=== PATIENT | female | born 1955 | race Caucasian/White ===

== ENCOUNTER 2020-11-10 23:19 | Emergency (ER) | payer BC ==
[~2020-11-10] VITALS: Ht 170.2 cm; Wt 93.0 kg
[2020-11-10] MEDS ORDERED: ULTRAM 50MG TAB50 MG PO (23:29)
[2020-11-11 00:11] LABS: ABSOLUTE NEUTROPHILS 4.7 thou/uL (1.4-8.2); EOSINOPHILS 2.2 % (0.0-3.0); HEMATOCRIT 39.7 % (37.0-47.0); HEMOGLOBIN 12.4 gm/dL (12.0-15.0); LYMPHOCYTES 26.6 % (24.0-44.0); MCH 20.5 pg (26.0-34.0); MCHC 31.1 g/dL (28.0-37.0); MCV 65.8 fL (80.0-100.0); MONOCYTES 7.4 % (1.0-8.0); PLATELET COUNT 265 thou/uL (150-400); POLYS 62.8 % (36.0-66.0); RBC 6.04 mil/uL (4.20-5.00); RDW 15.4 % (10.5-14.5); WBC 7.4 thou/uL (4.0-11.0)
[2020-11-11 00:27] LABS: CALCIUM 9.6 mg/dL (8.5-10.1); CREATININE 0.7 mg/dL (0.6-1.0)
[2020-11-11 00:28] LABS: POTASSIUM 4.9 mmol/L (3.5-5.1)
[2020-11-11 00:34] LABS: ALBUMIN 3.9 g/dL (3.4-5.0); TOTAL BILIRUBIN 0.5 mg/dL (0.2-1.0); TOTAL PROTEIN 7.4 g/dL (6.4-8.2)
[2020-11-11 00:37] LABS: APTT 22.8 Seconds (24.5-32.8); PROTIME 9.6 Seconds (9.3-11.4)
[2020-11-11 00:58] LABS: HYPOCHROMASIA 1+; MICROCYTES 3+
[2020-11-11 03:06] VITALS: BP 141/70
--- NOTE | 2020-11-11 07:09 | EKG ---
[place] [address] [facility] [place] [address] ELECTROCARDIOGRAM REPORT Name: ASHLEIGH HENDERSON [facility] [id number] Admission: 11/10/20 Attend Phys: Discharge: 11/11/20 Date of : 53 Report #: [id number] [facility] ED Test Date: 2020-11-10 Test Time: 23:43:35 Pat Name: ASHLEIGH HENDERSON Department: Room: Gender: F [employer] Nailer: yolie : 1955 Requested By: Dakota Su Order Number: [id number] MD: Cecilio Wellington Measurements Intervals [place] Rate: 67 P: -7 [place]: 170 QRS: -17 QRSD: 74 T: 21 QT: 384 QTc: 406 Interpretive Statements Sinus rhythm Inferior infarct, old Baseline wander in lead(s) V2 No previous ECG available for comparison Electronically Signed On 11-11-2020 7:09:28 [employer]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
== END 2020-11-11 03:08 | disposition short-term general hospital (02) ==
LOC: ER 23:19
PROVIDERS: Emergency Medicine
DX: R60.0 Localized edema (principal); Z90.89 Acquired absence of other organs; Z79.899 Other long term (current) drug therapy; Z88.0 Allergy status to penicillin